=== PATIENT | female | born 1965 | race African-American/Black ===

== ENCOUNTER 2017-05-24 18:37 | Emergency (ER) | payer SELFPAY ==
[2017-05-24] MEDS ORDERED: NORMAL SALINE 1000 ML 1,000 ML IV ONE (19:25)
[2017-05-24] MEDS ORDERED: CLONIDINE HCL 0.1 MG TABLET PO ONE (19:25)
[2017-05-24] MEDS ORDERED: DICYCLOMINE HCL INJ 20 MG/2 ML AMPULE IM PRN (19:27)
[2017-05-24] MEDS ORDERED: ONDANSETRON HCL INJ/PF 4 MG/2 ML SDV IV ONE (19:27)
--- NOTE | 2017-05-24 19:42 | ER Document Report ---
ED Medical Screen (RME) - General Chief Complaint: Drug Abuse Stated Complaint: VOMITING Time Seen by Provider: 05/24/17 19:10 Notes: 51-year-old female past medical history cocaine and heroin abuse here with complaints of nausea vomiting diarrhea body aches ongoing for past few days. has not used heroine in 24 hours because she is not from the area and doesn't know where to get it. Has not tried anything for the sx. EXAM Tachycardic Actively vomiting on exam No appreciable TTP TRAVEL OUTSIDE OF THE [place] IN LAST 30 DAYS: No - Related Data Allergies/Adverse Reactions: No Known Allergies Allergy (Verified 05/24/17 18:39) Home Medications: Current Home Medications Clonazepam [Klonopin 2 mg Tablet] 1 tab PO BID 05/24/17 [History] Clonidine HCl [Catapres 0.3 mg Tablet] 1 tab PO BID 05/24/17 [History] Lisinopril 1 tab PO DAILY 05/24/17 [History] Past Medical History - Social History Frequency of alcohol use: None Drug Abuse: Cocaine, Heroin Renal/ Medical History: Denies: Hx Peritoneal Dialysis Physical Exam - Vital signs Vitals: Temp Pulse BP Pulse Ox 98.9 F 107 H 210/140 H 100 05/24/17 18:46 05/24/17 18:46 05/24/17 18:46 05/24/17 18:46 Course - Vital Signs Vital signs: Temp Pulse Resp BP Pulse Ox 98.9 F 107 H 210/140 H 100 05/24/17 18:46 05/24/17 18:46 05/24/17 18:46 05/24/17 18:46
[2017-05-24] MEDS ORDERED: GABAPENTIN 300 MG CAPSULE PO ONE (19:58)
[2017-05-24] MEDS ORDERED: LISINOPRIL 10 MG TABLET PO ONE (20:38)
--- NOTE | 2017-05-24 20:38 | ER Document Report ---
ED General - General Chief Complaint: Drug Abuse Stated Complaint: VOMITING Time Seen by Provider: 05/24/17 19:10 Notes: Patient is a 51-year-old female who admits to heavy heroin and cocaine abuse chronically who is in the area visiting family for the holidays. She states that due to her lack of access to her when she has begun to develop withdrawal symptoms over the last 24 hours. She notes diffuse body aching, vomiting, diarrhea, as well as frequent sweating and shaking. She states this is similar to when she is withdrawn from heroin in the past. She has not tried any to improve her symptoms. Nothing worsens her symptoms. She has not been able to see her doctor as she is visiting from out of town. She denies any focal abdominal pain but does describe generalized abdominal discomfort with vomiting episodes. The patient also notes a long-standing history of severe hypertension and admits that she has not taken any of her blood pressure medicines today. She denies any chest pain, shortness of breath, headache, neck pain or altered mental status. TRAVEL OUTSIDE OF THE [place] IN LAST 30 DAYS: No - Related Data Allergies/Adverse Reactions: No Known Allergies Allergy (Verified 05/24/17 18:39) Home Medications: Current Home Medications Clonazepam [Klonopin 2 mg Tablet] 1 tab PO BID 05/24/17 [History] Clonidine HCl [Catapres 0.3 mg Tablet] 1 tab PO BID 05/24/17 [History] Lisinopril 1 tab PO DAILY 05/24/17 [History] Past Medical History - General Information source: Patient - Social History Smoking Status: Current Every Day Smoker Frequency of alcohol use: None Drug Abuse: Cocaine, Heroin Family History: Reviewed & Not Pertinent Patient has suicidal ideation: No Patient has homicidal ideation: No Renal/ Medical History: Denies: Hx Peritoneal Dialysis Review of Systems - Review of Systems Notes: Constitutional: Negative for fever. HENT: Negative for sore throat. Eyes: Negative for visual changes. Cardiovascular: Negative for chest pain. Respiratory: Negative for shortness of breath. Gastrointestinal: Positive for abdominal pain, vomiting and diarrhea Genitourinary: Negative for dysuria. Musculoskeletal: Negative for back pain. Skin: Negative for rash. Neurological: Negative for headaches, weakness or numbness. 10 point ROS negative except as marked above and in HPI. Physical Exam - Vital signs Vitals: Temp Pulse BP Pulse Ox 98.9 F 107 H 210/140 H 100 05/24/17 18:46 05/24/17 18:46 05/24/17 18:46 05/24/17 18:46 Interpretation: Hypertensive, Tachycardic Notes: PHYSICAL EXAMINATION: GENERAL: Appears moderately uncomfortable but in no acute distress HEAD: Atraumatic, normocephalic. EYES: Pupils equal round and reactive to light, extraocular movements intact, sclera anicteric, conjunctiva are normal. ENT: nares patent, oropharynx clear without exudates. Moderately dry mucous membranes. NECK: Normal range of motion, supple without lymphadenopathy LUNGS: Breath sounds clear to auscultation bilaterally and equal. No wheezes rales or rhonchi. HEART: Regular rate and rhythm without murmurs ABDOMEN: Soft, nontender, normoactive bowel sounds. No guarding, no rebound. No masses appreciated. EXTREMITIES: Normal range of motion, no pitting or edema. No cyanosis. NEUROLOGICAL: No focal neurological deficits. Moves all extremities spontaneously and on command. PSYCH: Somewhat anxious, tremulous SKIN: Warm, Dry, normal turgor, no rashes or lesions noted. Course - Re-evaluation Re-evalutation: 05/24/17 20:37 Patient presents with signs and symptoms consistent with acute heroin withdrawal including tachycardia, hypertension, vomiting, diarrhea and body aches. Her last use of heroin was approximately 24 hours ago and symptoms started approximately 14-15 hours after her last heroin use. Patient does also have significant hypertension although she notes that she has not taken her normal antihypertensive medications today secondary to vomiting. Patient initially refuses any formal abdominal examination. Will reassess after patient has had some improvement of her symptoms. Awaiting laboratory results. 05/24/17 22:06 Labs overall unremarkable without any evidence of acute hepatitis or pancreatitis. Patient has allowed me to perform an abdominal exam this point and was actually sleeping when I walked into the room. There is no focal abdominal tenderness on palpation of the abdomen to suggest an acute appendicitis, biliary pathology, or bowel obstruction. She has been able to tolerate oral intake without any further vomiting here in the emergency department. She notes that her abdominal pain only occurs with vomiting. I do not believe any imaging of the abdomen and pelvis is indicated at this time given her reassuring abdominal exam and history. Her blood pressure does remain markedly elevated although patient reports to me that this is quite typical for her even when she takes her blood pressure medication which she has not taken today. I have started the patient on clonidine patch and have provided her oral gabapentin that can be used at home as needed for withdrawal symptoms. At this time will discharge with return precautions and follow-up recommendations. Verbal discharge instructions given a the bedside and opportunity for questions given. Medication warnings reviewed. Patient is in agreement with this plan and has verbalized understanding of return precautions and the need for primary care follow-up in the next 24-72 hours. - Vital Signs Vital signs: Temp Pulse Resp BP Pulse Ox 99.0 F 107 H 20 212/124 H 100 05/25/17 00:55 05/24/17 18:46 05/25/17 01:00 05/25/17 00:45 05/25/17 00:31 - Laboratory Result Diagrams: 05/24/17 20:00 Laboratory results interpreted by me: 05/24/17 20:00 Sodium 145.6 H Potassium 3.4 L Chloride 97 L Anion Gap 23 H Glucose 114 H Calcium 11.4 H Total Protein 10.9 H Albumin 5.8 H Discharge - Discharge Clinical Impression: Opiate withdrawal, Vomiting and diarrhea Abdominal pain Qualifiers: Abdominal location: generalized Qualified Code(s): R10.84 - Generalized abdominal pain Condition: Good Disposition: HOME, SELF-CARE Additional Instructions: Your seen today for concerns of withdrawing from opiates. Opiate withdrawal is very uncomfortable but is not dangerous. The acute withdrawal phase will last for approximately 1 week and will consist of body aches, headache, nausea, vomiting, diarrhea, and abdominal pain. Sleeping can be difficult. You may also feel depressed or anxious. After the acute withdrawal is finished, it is very common to have chronic opiate withdrawal that can last for months. This can consist of feeling depressed and having cravings for opiates. I strongly encourage you to enroll in an outpatient rehab program and consider going on a medication such as Suboxone to prevent relapse. To help manage your acute withdrawal symptoms your are being sent home with a clonidine patch on. You may keep this patch on for up to 1 week. You have also been sent home with a prescription for a medication called gabapentin. You may take 600 mg nightly again to assist with sleep and withdrawal symptoms. You may take the Zofran also known as ondansetron that she were sent home with as needed for nausea and vomiting. Please return if you become suicidal, have persistent vomiting that prevents you from being able to take fluids for more than 12 hours, you pass out , or you have any other symptoms that are worrisome to you. Prescriptions: Gabapentin 600 mg PO QHS #20 capsule
[2017-05-24] MEDS ORDERED: IBUPROFEN 400 MG TABLET PO ONE (21:17)
[2017-05-24 21:41] LABS: ALANINE AMINOTRANSFERASE 40 U/L (9-52); ALBUMIN 5.8 g/dL (3.5-5.0); ALKALINE PHOSPHATASE 115 U/L (38-126); ASPARTATE AMINO TRANSFERASE 29 U/L (14-36); BILIRUBIN,DIRECT 0.4 mg/dL (0.0-0.4); BILIRUBIN,TOTAL 0.7 mg/dL (0.2-1.3); BLOOD UREA NITROGEN 18 mg/dL (7-20); CALCIUM 11.4 mg/dL (8.4-10.2); CARBON DIOXIDE 26 mmol/L (22-30); CHLORIDE 97 mmol/L (98-107); GLUCOSE 114 mg/dL (75-110); LIPASE 48.2 U/L (23-300); POTASSIUM 3.4 mmol/L (3.6-5.0); TOTAL PROTEIN 10.9 g/dL (6.3-8.2)
[2017-05-24 21:52] LABS: SODIUM 145.6 mmol/L (137-145)
[2017-05-24 21:53] LABS: ANION GAP 23 (5-19)
[2017-05-24] MEDS ORDERED: DIAZEPAM INJ 10 MG/2 ML DISP.SYRIN IV ONE (22:02)
[2017-05-24] MEDS ORDERED: CLONIDINE 0.1 MG/24 HR PATCH.TDWK TD ONE (22:06)
[2017-05-24] MEDS ORDERED: ONDANSETRON ODT 4 MG TAB (6 TAB/ER DISP) PO PRN (22:07)
[2017-05-25 00:53] VITALS: BP 211/153
== END 2017-05-25 01:00 | disposition home or self-care (01) ==
LOC: ER 18:37
DX: F19.10 Other psychoactive substance abuse, uncomplicated (principal); F11.23 Opioid dependence with withdrawal; F14.10 Cocaine abuse, uncomplicated; R19.7 Diarrhea, unspecified; R11.10 Vomiting, unspecified; R61 Generalized hyperhidrosis; R10.84 Generalized abdominal pain; I10 Essential (primary) hypertension; R00.0 Tachycardia, unspecified; F17.200 Nicotine dependence, unspecified, uncomplicated
CPT/HCPCS: 99284; 96361; 96374; 96375; 83690; 80053; J3360; J3490 ×2; J2405; J7030